=== PATIENT | male | born 1995 | race Caucasian/White ===

== ENCOUNTER 2018-05-26 21:46 | Emergency (ER) | payer OTHER ==
[~2018-05-26] VITALS: Ht 182.9 cm; Wt 115.9 kg
[2018-05-26 21:50] VITALS: BP 137/84; TEMP 98.8
[2018-05-26 23:34] VITALS: PULSE 87
== END 2018-05-26 23:34 | disposition home or self-care (01) ==
LOC: COL.ER 21:46
DX: S93.402A Sprain of unspecified ligament of left ankle, initial encounter (principal); G47.00 Insomnia, unspecified; X50.1XXA Overexertion from prolonged static or awkward postures, initial encounter; W10.9XXA Fall (on) (from) unspecified stairs and steps, initial encounter
CPT/HCPCS: Q4045

== ENCOUNTER 2018-06-14 10:50 | Emergency (ER) | payer OTHER ==
[~2018-06-14] VITALS: Ht 182.9 cm; Wt 118.2 kg
[2018-06-14 10:58] VITALS: BP 148/79; TEMP 98.7
[2018-06-14 13:42] VITALS: PULSE 88
== END 2018-06-14 13:42 | disposition home or self-care (01) ==
LOC: COL.ER 10:50
DX: R07.89 Other chest pain (principal); F17.210 Nicotine dependence, cigarettes, uncomplicated
CPT/HCPCS: J1885